=== PATIENT | female | born 1980 | race Two or more races ===

== ENCOUNTER 2018-05-22 17:00 | Emergency (ER) | payer SELFPAY ==
[~2018-05-22] VITALS: Ht 152.4 cm; Wt 81.6 kg
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
[2018-05-22 18:29] LABS: BILIRUBIN,URINE NEGATIVE (NEG); CLARITY,URINE CLEAR; COLOR,URINE YELLOW; NITRITE,URINE NEGATIVE (NEG); PH,URINE 6.5; PROTEIN,URINE NEGATIVE (NEG-TRACE)
[2018-05-22 18:40] LABS: RBC,URINE 0 /HPF (0-2)
[2018-05-22 18:41] LABS: BACTERIA,URINE FEW /HPF (0-FEW); SQUAMOUS EPITHELIAL CELL,UR FEW /LPF
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
[2018-05-22 19:50] LABS: CALCIUM 8.3 mg/dL (8.5-10.1); CREATININE 0.6 mg/dL (0.6-1.0); GFR 113.8; POTASSIUM 3.4 mmol/L (3.5-5.1)
[2018-05-22 19:54] LABS: TOTAL BILIRUBIN 0.6 mg/dL (0.2-1.0); TOTAL PROTEIN 8.4 g/dL (6.4-8.2)
[2018-05-22 20:00] LABS: ALBUMIN 3.5 g/dL (3.4-5.0); ALBUMIN/GLOBULIN RATIO 0.7 (1.0-1.7)
[2018-05-22 20:15] LABS: BASO % 0 % (0-3); EOS # 0.1 x10^3/uL (0.0-0.7); EOS % 2 % (0-3); HEMOGLOBIN 10.4 g/dL (12.0-15.5); LYMPH # 2.1 x10^3/uL (1.0-4.8); LYMPH % 28 % (24-48); MEAN CORPUSCULAR HEMOGLOBIN 23 pg (25-35); MEAN CORPUSCULAR HGB CONC 31 g/dL (31-37); MEAN CORPUSCULAR VOLUME 74 fL (79-100); MONO # 0.8 x10^3/uL (0.0-1.1); MONO % 11 % (0-9); NEUT # 4.4 x10^3uL (1.8-7.7); NEUT % 58 % (31-73); PLATELET COUNT 362 x10^3/uL (140-400); RED BLOOD COUNT 4.62 x10^6/uL (3.50-5.40); RED CELL DISTRIBUTION WIDTH 17.3 % (11.5-14.5); WHITE BLOOD COUNT 7.4 x10^3/uL (4.0-11.0)
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
[2018-05-22 20:46] VITALS: BP 115/61
[2018-05-22] MEDS ORDERED: CEPH500C PO (20:54)
[2018-05-22 21:25] LABS: HYPOCHROMIA MOD; MICROCYTOSIS SLIGHT; PLT ESTIMATE ADEQUATE (ADEQUATE); TARGET CELLS OCC
--- NOTE | 2018-05-23 10:55 | EKG ---
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
== END 2018-05-22 21:15 | disposition home or self-care (01) ==
LOC: ER 17:00
DX: O9A.211 Injury, poisoning and certain other consequences of external causes complicating pregnancy, first trimester (principal); R07.89 Other chest pain; M54.2 Cervicalgia; M25.532 Pain in left wrist; Z3A.01 Less than 8 weeks gestation of pregnancy; V49.9XXA Car occupant (driver) (passenger) injured in unspecified traffic accident, initial encounter; Y93.89 Activity, other specified; Y92.410 Unspecified street and highway as the place of occurrence of the external cause; Y99.8 Other external cause status
CPT/HCPCS: 36415; 70450; 71046; 72125; 73110; 76801; 76817; 80053; 81001; 81025; 84484; 84702; 85025; 86850; 86900; 86901; 87086; 93005; 99284-25

== ENCOUNTER 2018-12-06 18:59 | Observation (INO) | payer SELFPAY ==
[~2018-12-06 18:59] MED LIST: CEPH500C PO
[2018-12-06] MEDS ORDERED: IV RINGERS,LACTATED 1000ML 1,000 ML IV SCH (19:29)
[2018-12-06 20:24] LABS: BILIRUBIN,URINE NEGATIVE (NEG); CLARITY,URINE CLEAR; COLOR,URINE YELLOW; NITRITE,URINE NEGATIVE (NEG); PH,URINE 6.5; PROTEIN,URINE NEGATIVE (NEG-TRACE); UROBILINOGEN,URINE 0.2 mg/dL (0.2 mg/dL)
[2018-12-06 20:29] LABS: BACTERIA,URINE FEW /HPF (0-FEW); RBC,URINE 0 /HPF (0-2)
[2018-12-06 20:30] LABS: BARBITURATES NEG (NEG); BENZODIAZEPINES NEG (NEG); CANNABINOIDS NEG (NEG); COCAINE NEG (NEG); METHADONE NEG (NEG); OPIATES NEG (NEG); PHENCYCLIDINE NEG (NEG); SQUAMOUS EPITHELIAL CELL,UR FEW /LPF
[2018-12-06 20:31] LABS: AMPHETAMINE/METHAMPHETAMINE NEG (NEG)
--- NOTE | 2018-12-06 21:37 | RAD ---
Exam: Ultrasound abdomen limited Indication: Lower abdominal pain and back pain Technique: Real-time grayscale and color Doppler images of the right upper quadrant were obtained by the department dressed poultry grader. Comparisons: None FINDINGS: Liver demonstrates homogenous attenuation. Hepatopedal flow noted within the portal vein. Common bile duct measures 5 mm in diameter. Gallbladder is distended measuring 10.9 cm in length. Gallstones are noted within the gallbladder. No pericholecystic inflammatory changes. No sonographic Merrill's sign by the department dressed poultry grader. Right kidney measures 11.9 cm in length. There is mild to moderate hydronephrosis. IMPRESSION: 1. Mild -sided hydronephrosis. 2. Cholelithiasis with distended gallbladder without other sonographic evidence of acute cholecystitis. 3. Normal sonographic appearance of the liver Electronically signed by: Frieda Vasquez MD (12/06/2018 9:33 PM) [facility]
--- NOTE | 2018-12-06 21:39 | RAD ---
Exam: Ultrasound OB limited Indication: Lower abdominal pain and back pain Technique: Real-time grayscale and color Doppler images of the pelvis were obtained by the department ecotherapist. Comparisons: None FINDINGS: Single live intrauterine gestation in cephalic position with heart rate measured at 131 bpm. measurements as follows: BPD: 8.8 cm corresponding to 35 weeks 6 days HC: 31.6 cm corresponding to 35 weeks 4 days AC: 31.6 cm corresponding to 35 weeks 4 days FL: 7.3 cm corresponding to 37 weeks 4 days Estimated weight 2854 g CARA is normal at 8.6. Cervix is not visualized Placenta has a normal appearance. IMPRESSION: 1. Single live intrauterine gestation with measurements as described above. 2. CARA measured at 8.6 3. Normal appearance of the placenta. Electronically signed by: Frieda Vasquez MD (12/06/2018 9:36 PM) [id number]
== END 2018-12-06 21:53 | disposition home or self-care (01) ==
LOC: 3 SO LND 18:59
PROVIDERS: ADMIT Obstetrics & Gynecology; ATTEND Obstetrics & Gynecology
DX: O62.9 Abnormality of forces of labor, unspecified (principal); Z3A.33 33 weeks gestation of pregnancy
CPT/HCPCS: 76705; 76815; 80307; 81001; G0378; G0379

== ENCOUNTER 2018-12-16 03:23 | Observation (INO) | payer OTHER ==
[2018-12-16] MEDS ORDERED: IV RINGERS,LACTATED 1000ML 1,000 ML IV SCH (03:24)
[2018-12-16] MEDS ORDERED: ONDANSETRON PF 4 MG/2 ML VIAL. IV PRN (03:30)
[2018-12-16] MEDS ORDERED: ACETAMINOPHEN 325 MG TABLET. PO PRN (03:30)
[2018-12-16 03:57] LABS: BILIRUBIN,URINE NEGATIVE (NEG); CLARITY,URINE CLEAR; COLOR,URINE YELLOW; NITRITE,URINE NEGATIVE (NEG); PH,URINE 7.5; PROTEIN,URINE NEGATIVE (NEG-TRACE)
[2018-12-16 04:03] LABS: SQUAMOUS EPITHELIAL CELL,UR MOD /LPF
[2018-12-16 04:04] LABS: BACTERIA,URINE 0 /HPF (0-FEW); RBC,URINE 0 /HPF (0-2)
== END 2018-12-16 08:06 | disposition home or self-care (01) ==
LOC: 3 SO LND 03:23
PROVIDERS: ADMIT Obstetrics & Gynecology; ATTEND Obstetrics & Gynecology
DX: O62.9 Abnormality of forces of labor, unspecified (principal); Z3A.35 35 weeks gestation of pregnancy
CPT/HCPCS: 81001; 87086; 96374; G0378; G0379; J2405; J7120

== ENCOUNTER 2019-01-08 11:57 | Inpatient (IN) | payer OTHER ==
[~2019-01-08] VITALS: Ht 154.9 cm; Wt 84.4 kg
[2019-01-08] MEDS ORDERED: TERBUTALINE 1 MG/ML VIAL. SQ PRN (12:15)
[2019-01-08] MEDS ORDERED: OXYTOCIN 30 UNIT/500 ML PREMIX 500 ML IV PRN ×3 (12:15→20:30)
[2019-01-08] MEDS ORDERED: BUTORPHANOL 2 MG/ML VIAL. IV PRN (12:15)
[2019-01-08] MEDS ORDERED: CITRIC ACID/SODIUM CITRATE 30 ML SOLUTION. PO PRN (12:15)
[2019-01-08] MEDS ORDERED: IBUPROFEN 400 MG TABLET. PO PRN (12:15)
[2019-01-08] MEDS ORDERED: 0.9 % SODIUM CHLORIDE 10 ML DISP.SYRIN. IV PRN ×2 (12:15→20:30)
[2019-01-08] MEDS ORDERED: fentaNYL PF VIAL 100 MCG/2 ML VIAL IV PRN (12:15)
[2019-01-08] MEDS ORDERED: LIDOCAINE 1% PF 30 ML VIAL. INJ PRN (12:15)
[2019-01-08 12:45] VITALS: BP 135/87
[2019-01-08 13:13] LABS: BASO % 1 % (0-3); EOS # 0.1 x10^3/uL (0.0-0.7); EOS % 1 % (0-3); HEMATOCRIT 34.7 % (36.0-47.0); HEMOGLOBIN 11.2 g/dL (12.0-15.5); LYMPH # 1.6 x10^3/uL (1.0-4.8); LYMPH % 16 % (24-48); MEAN CORPUSCULAR HEMOGLOBIN 27 pg (25-35); MEAN CORPUSCULAR HGB CONC 32 g/dL (31-37); MEAN CORPUSCULAR VOLUME 84 fL (79-100); MONO # 0.6 x10^3/uL (0.0-1.1); MONO % 6 % (0-9); NEUT # 7.6 x10^3/uL (1.8-7.7); NEUT % 77 % (31-73); PLATELET COUNT 193 x10^3/uL (140-400); RED BLOOD COUNT 4.15 x10^6/uL (3.50-5.40); WHITE BLOOD COUNT 9.8 x10^3/uL (4.0-11.0)
[2019-01-08] MEDS: IV RINGERS,LACTATED 1000ML 1,000 ML IV SCH ×2 (13:20→17:01)
--- NOTE | 2019-01-08 15:09 | PDOC1 ---
OB - History Hx of Present Care: Limited Care Ultrasounds: Normal mid trimester US Obstetrical Complications: None Medical Complications: None Past Family/Social History * Past Medical, Surgical, Family and Obstetric Histories reviewed from chart. Rubella: Immune RPR/VDRL: Negative GBS Status: Negative HBsAG: Negative OB - Chief Complaint & HPI Date of Admission: Date of Admission: Jan 08, 2019 at 11:57 Chief Complaint/History : 4 Para: 3 EGA: 40 Reason for admission: induction of labor Admission Nurse Assessment Rev: Yes OB - Admission Exam Physical Exam Vitals: VS - Last 72 Hours, by Label Date Time Temp Pulse Resp B/P (MAP) Pulse Ox O2 Delivery O2 Flow Rate FiO2 01/08/19 14:47 20 01/08/19 12:45 98.0 61 18 135/87 (103) 98.0 HEENT: Normal Heart: Regular Rate Lungs: Clear Abdomen: Gravid, Non tender, Soft Extremities: Edema Reflexes: Normal Cervical Dilatation: 4cm Effacement: 75% Station: -3 Membranes: Intact Heart Rate: Normal Accelerations: Accelerations Present Decelerations: No decelerations Contractions on Admission: 6-10 Minutes Apart Intensity: Moderate Text A: 40 wks IUP IOL post term GDM A1 P: Admit for IOL pitocin. EDITH WYMAN Jr, MD Jan 08, 2019 15:09
[2019-01-08] MEDS ORDERED: ROPIVacaine 0.2% PF 10 ML VIAL. ONE ×2 (17:00→17:05)
[2019-01-08] MEDS ORDERED: L&D EPIDURAL 50 ML SYRINGE. ONE (17:00)
[2019-01-08] MEDS ORDERED: IV RINGERS,LACTATED 1000ML 1,000 ML IV ONE (17:02)
[2019-01-08] MEDS ORDERED: L&D EPIDURAL SYRINGE 50 ML EPID PRN (17:15)
[2019-01-08] MEDS ORDERED: NALOXONE 0.4 MG/ML VIAL. IV PRN (17:15)
[2019-01-08] MEDS ORDERED: ONDANSETRON PF 4 MG/2 ML VIAL. IV PRN (17:15)
[2019-01-08] MEDS ORDERED: ePHEDrine PF IN SALINE 50 MG/10 ML SYRINGE. IV PRN (17:15)
[2019-01-08] MEDS ORDERED: SIMETHICONE 80 MG TAB.CHEW PO PRN (20:30)
[2019-01-08] MEDS ORDERED: oxyCODONE/APAP 5/325 1 TAB TABLET PO PRN (20:30)
[2019-01-08] MEDS ORDERED: MAGNESIUM HYDROXIDE 2,400 MG/30 ML ORAL.SUSP. PO PRN (20:30)
[2019-01-08] MEDS ORDERED: MMR per PROTOCOL. MC PRN (20:30)
[2019-01-08] MEDS ORDERED: BENZOCAINE 20% TOPICAL AEROSOL SPRAY 57GM CAN. TP PRN (20:30)
[2019-01-08] MEDS ORDERED: HYDROCORTISONE 1% TOPICAL OINTMENT 30GM TUBE. TP PRN (20:30)
[2019-01-08] MEDS ORDERED: MAG HYDROX/ALUMINUM HYD/SIMETH 30 ML ORAL.SUSP PO PRN (20:30)
[2019-01-08] MEDS ORDERED: ACETAMINOPHEN 325 MG TABLET. PO PRN (20:30)
[2019-01-08] MEDS ORDERED: ZOLPIDEM 5 MG TABLET. PO PRN (20:30)
[2019-01-08] MEDS ORDERED: diphenhydrAMINE HCL 25 MG CAPSULE PO PRN (20:30)
[2019-01-08] MEDS ORDERED: PHENYLEPH/MINERAL OIL/PETROLAT RECTAL OINTMENT TUBE. RC PRN (20:30)
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
[2019-01-08 23:00] VITALS: BP 117/62
[2019-01-09 04:00] VITALS: BP 110/63
[2019-01-09] MEDS: IV RINGERS,LACTATED 1000ML 1,000 ML IV SCH (04:08)
[2019-01-09 05:13] LABS: BASO % 0 % (0-3); EOS % 0 % (0-3); HEMATOCRIT 32.8 % (36.0-47.0); HEMOGLOBIN 10.7 g/dL (12.0-15.5); LYMPH # 1.8 x10^3/uL (1.0-4.8); LYMPH % 9 % (24-48); MEAN CORPUSCULAR HEMOGLOBIN 27 pg (25-35); MEAN CORPUSCULAR HGB CONC 33 g/dL (31-37); MEAN CORPUSCULAR VOLUME 83 fL (79-100); MONO # 1.6 x10^3/uL (0.0-1.1); MONO % 8 % (0-9); NEUT # 15.9 x10^3/uL (1.8-7.7); NEUT % 82 % (31-73); PLATELET COUNT 189 x10^3/uL (140-400); RED BLOOD COUNT 3.96 x10^6/uL (3.50-5.40); RED CELL DISTRIBUTION WIDTH 15.2 % (11.5-14.5); WHITE BLOOD COUNT 19.3 x10^3/uL (4.0-11.0)
[2019-01-09 07:35] LABS: % BANDS 8 % (0-9); % LYMPHS 8 % (24-48); % MONOS 4 % (0-10); % SEGS 80 % (35-66); PLT ESTIMATE ADEQUATE (ADEQUATE)
[2019-01-09] MEDS: FERROUS SULFATE 325 MG TABLET. PO SCH ×2 (08:00→17:00)
[2019-01-09 08:30] VITALS: BP 99/68
[2019-01-09] MEDS: IBUPROFEN 400 MG TABLET. PO PRN (08:30)
[2019-01-09] MEDS: DOCUSATE SODIUM 100 MG CAPSULE. PO PRN (08:32)
--- NOTE | 2019-01-09 09:09 | PDOC ---
OB Progress Note Date of Service 01/09/19 Time of Evaluation 0910 Notes Pt. feeling well. No complaints. Lab Laboratory Tests Test 01/08/19 12:57 01/09/19 04:50 White Blood Count 9.8 x10^3/uL (4.0-11.0) 19.3 x10^3/uL (4.0-11.0) Red Blood Count 4.15 x10^6/uL (3.50-5.40) 3.96 x10^6/uL (3.50-5.40) Hemoglobin 11.2 g/dL (12.0-15.5) 10.7 g/dL (12.0-15.5) Hematocrit 34.7 % (36.0-47.0) 32.8 % (36.0-47.0) Mean Corpuscular Volume 84 fL (79-100) 83 fL (79-100) Mean Corpuscular Hemoglobin 27 pg (25-35) 27 pg (25-35) Mean Corpuscular Hemoglobin Concent 32 g/dL (31-37) 33 g/dL (31-37) Red Cell Distribution Width 15.0 % (11.5-14.5) 15.2 % (11.5-14.5) Platelet Count 193 x10^3/uL (140-400) 189 x10^3/uL (140-400) Neutrophils (%) (Auto) 77 % (31-73) 82 % (31-73) Lymphocytes (%) (Auto) 16 % (24-48) 9 % (24-48) Monocytes (%) (Auto) 6 % (0-9) 8 % (0-9) Eosinophils (%) (Auto) 1 % (0-3) 0 % (0-3) Basophils (%) (Auto) 1 % (0-3) 0 % (0-3) Neutrophils # (Auto) 7.6 x10^3/uL (1.8-7.7) 15.9 x10^3/uL (1.8-7.7) Lymphocytes # (Auto) 1.6 x10^3/uL (1.0-4.8) 1.8 x10^3/uL (1.0-4.8) Monocytes # (Auto) 0.6 x10^3/uL (0.0-1.1) 1.6 x10^3/uL (0.0-1.1) Eosinophils # (Auto) 0.1 x10^3/uL (0.0-0.7) 0.0 x10^3/uL (0.0-0.7) Basophils # (Auto) 0.0 x10^3/uL (0.0-0.2) 0.0 x10^3/uL (0.0-0.2) Treponema pallidum Antibody Nonreactive (Nonreactive) Segmented Neutrophils % 80 % (35-66) Band Neutrophils % 8 % (0-9) Lymphocytes % 8 % (24-48) Monocytes % 4 % (0-10) Platelet Estimate Adequate (ADEQUATE) Laboratory Tests Test 01/08/19 12:57 01/09/19 04:50 White Blood Count 9.8 x10^3/uL (4.0-11.0) 19.3 x10^3/uL (4.0-11.0) Red Blood Count 4.15 x10^6/uL (3.50-5.40) 3.96 x10^6/uL (3.50-5.40) Hemoglobin 11.2 g/dL (12.0-15.5) 10.7 g/dL (12.0-15.5) Hematocrit 34.7 % (36.0-47.0) 32.8 % (36.0-47.0) Mean Corpuscular Volume 84 fL (79-100) 83 fL (79-100) Mean Corpuscular Hemoglobin 27 pg (25-35) 27 pg (25-35) Mean Corpuscular Hemoglobin Concent 32 g/dL (31-37) 33 g/dL (31-37) Red Cell Distribution Width 15.0 % (11.5-14.5) 15.2 % (11.5-14.5) Platelet Count 193 x10^3/uL (140-400) 189 x10^3/uL (140-400) Neutrophils (%) (Auto) 77 % (31-73) 82 % (31-73) Lymphocytes (%) (Auto) 16 % (24-48) 9 % (24-48) Monocytes (%) (Auto) 6 % (0-9) 8 % (0-9) Eosinophils (%) (Auto) 1 % (0-3) 0 % (0-3) Basophils (%) (Auto) 1 % (0-3) 0 % (0-3) Neutrophils # (Auto) 7.6 x10^3/uL (1.8-7.7) 15.9 x10^3/uL (1.8-7.7) Lymphocytes # (Auto) 1.6 x10^3/uL (1.0-4.8) 1.8 x10^3/uL (1.0-4.8) Monocytes # (Auto) 0.6 x10^3/uL (0.0-1.1) 1.6 x10^3/uL (0.0-1.1) Eosinophils # (Auto) 0.1 x10^3/uL (0.0-0.7) 0.0 x10^3/uL (0.0-0.7) Basophils # (Auto) 0.0 x10^3/uL (0.0-0.2) 0.0 x10^3/uL (0.0-0.2) Treponema pallidum Antibody Nonreactive (Nonreactive) Segmented Neutrophils % 80 % (35-66) Band Neutrophils % 8 % (0-9) Lymphocytes % 8 % (24-48) Monocytes % 4 % (0-10) Platelet Estimate Adequate (ADEQUATE) Medications Current Medications Sodium Chloride (Normal Saline Flush) 3 ml QSHIFT PRN IV AFTER MEDS AND BLOOD DRAWS; Start 01/08/19 at 12:15 Ringer's Solution 1,000 ml @ 125 mls/hr Q8H IV Last administered on 01/08/19at 17:01; Start 01/08/19 at 12:08 Butorphanol Tartrate (Stadol) 2 mg PRN Q1HR PRN IV Severe labor pain Last administered on 01/08/19at 14:47; Start 01/08/19 at 12:15 Fentanyl Citrate (Fentanyl 2ml Vial) 100 mcg PRN Q30MIN PRN IV Severe pain; Start 01/08/19 at 12:15 Citric Acid/ Sodium Citrate (Bicitra) 30 ml 1X PRN PRN PO DYSPEPSIA; Start at 12:15; Stop 01/09/19 at 12:14 Terbutaline Sulfate (Brethine) 0.25 mg 1X PRN PRN SQ SEE COMMENTS; Start 01/08/19 at 12:15; Stop 01/09/19 at 12:14 Lidocaine HCl (Xylocaine 1% Pf 30ml Vial) 30 ml 1X PRN PRN INJ SEE COMMENTS; Start 01/08/19 at 12:15; Stop 01/10/19 at 12:14 Oxytocin/Sodium Chloride 500 ml @ 0 mls/hr CONT PRN IV SEE I/O RECORD Last administered on 01/08/19at 14:46; Start 01/08/19 at 12:15 Oxytocin/Sodium Chloride 500 ml @ 0 mls/hr CONT PRN PRN IV Post delivery bleeding; Start 01/08/19 at 12:15 Ibuprofen (Motrin) 800 mg PRN Q6HRS PRN PO PAIN Last administered on 01/09/19at 08:33; Start 01/08/19 at 12:15 Ringer's Solution 1,000 ml @ 0 mls/hr Q0M ONCE IV ; Start 01/08/19 at 17:02; Stop 01/08/19 at 17:06; Status DC Ephedrine Sulfate (ePHEDrine PF IN SALINE SYRINGE) 10 mg PRN Q2MIN PRN IV IF SBP<90; Start 01/08/19 at 17:15 Naloxone HCl (Narcan) 0.04 mg PRN Q1MIN PRN IV SEE COMMENTS; Start 01/08/19 at 17:15 Fentanyl Citrate 50 ml @ 14 mls/hr CONT PRN EPID PAIN; Start 01/08/19 at 17:15 Ondansetron HCl (Zofran) 4 mg PRN Q6HRS PRN IV NAUSEA/VOMITING; Start 01/08/19 at 17:15 Ropivacaine (Naropin 0.2%) 10 ml STK-MED ONCE .ROUTE ; Start 01/08/19 at 17:05; Stop 01/08/19 at 17:05; Status DC Sodium Chloride (Normal Saline Flush) 10 ml QSHIFT PRN IV AFTER MEDS AND BLOOD DRAWS; Start 01/08/19 at 20:30 Oxytocin/Sodium Chloride 500 ml @ 62.5 mls/hr CONT PRN IV SEE I/O RECORD; Start 01/08/19 at 20:30; Stop 01/09/19 at 04:29; Status DC Acetaminophen (Tylenol) 650 mg PRN Q6HRS PRN PO MILD PAIN / TEMP; Start 01/08/19 at 20:30 Ibuprofen (Motrin) 800 mg PRN Q8HRS PRN PO INFLAMMATION/PAIN PREVENTION; Start 01/08/19 at 20:30 Docusate Sodium (Colace) 100 mg PRN BID PRN PO CONSTIPATION Last administered on 01/09/19at 08:32; Start 01/08/19 at 20:30 Magnesium Hydroxide (Milk Of Magnesia) 2,400 mg PRN DAILY PRN PO CONSTIPATION; Start 01/08/19 at 20:30 Al Hydroxide/Mg Hydroxide (Mylanta Plus Xs) 30 ml PRN Q4HRS PRN PO HEARTBURN / GAS; Start 01/08/19 at 20:30 Simethicone (Gas-X) 80 mg PRN AFTMEALHC PRN PO GAS / BLOATING; Start 01/08/19 at 20:30 Diphenhydramine HCl (Benadryl) 25 mg PRN Q6HRS PRN PO ITCHING; Start 01/08/19 at 20:30 Benzocaine (Americaine) 1 spray PRN QID PRN TP TOPICAL PAIN; Start 01/08/19 at 20:30 Phenyleph/Shark Oil/Min Oil/Petrol (Preparation H) 1 laine PRN QID PRN RC RECTAL PAIN; Start 01/08/19 at 20:30 Hydrocortisone (Cortaid) 1 laine PRN QID PRN TP PERINEAL PAIN; Start 01/08/19 at 20:30 Ferrous Sulfate (Feosol) 325 mg BIDWMEALS PO ; Start 01/09/19 at 08:00 Zolpidem Tartrate (Ambien) 5 mg PRN QHS PRN PO INSOMNIA, MAY REPEAT X1; Start 01/08/19 at 20:30 Info (Do NOT chart on this placeholder) 1 ea 1X PRN PRN MC SEE COMMENTS; Start 01/08/19 at 20:30 Info (Do NOT chart on this placeholder) 1 ea 1X PRN PRN MC SEE COMMENTS; Start 01/08/19 at 20:30 Oxycodone/ Acetaminophen (Percocet 5/325) 2 tab PRN Q4HRS PRN PO MODERATE PAIN, SEVERE PAIN; Start 01/08/19 at 20:30 Active Scripts Active Cephalexin 500 Mg Capsule 1 Cap PO QID Exam Abd: soft, non tender, fundus firm Assessment PPD#1 s/p Plan of Care: Continue current Tx, Mgmt EDITH WYMAN Jr, MD Jan 09, 2019 09:09
[2019-01-09 18:00] VITALS: BP 106/59
[2019-01-09 22:44] VITALS: BP 121/69
[2019-01-10 06:10] VITALS: BP 115/65
[2019-01-10] MEDS: FERROUS SULFATE 325 MG TABLET. PO SCH (08:00)
--- NOTE | 2019-01-10 08:53 | PDOC3 ---
OB DISCHARGE SUMMARY DATE OF ADMISSION: 01/08/19 DATE OF DISCHARGE: 01/10/19 REASON FOR ADMISSION: Induction of labor INTRAPARTUM PROCEDURES: Spontanous Vag Deliv DISCHARGE DIAGNOSIS: Term Delivered DISCHARGE INFORMATION: Activity (ad mark), Diet (regular), Instructions (pelvic rest x 6 wks) HOSPITAL COURSE Term gestation delivered vaginally without complications. EDITH WYMAN Jr, MD Jan 10, 2019 08:53
[2019-01-10] MEDS ORDERED: IBUP-1027 PO (08:54)
--- NOTE | 2019-01-10 08:55 | DISCH ---
DISCHARGE INSTRUCTIONS Condition on Discharge Condition on Discharge: Stable Activity After Discharge Activity Instructions for Disc: Activity as tolerated Lifting Instructions after Dis: No heavy lifting Driving Instructions after Dis: Do not drive today Diet after Discharge Diet after Discharge: Regular Contacting the DRJoseph after DC Call your doctor for: Concerns you may have Follow-Up Follow up with: Ankit in 6 wks EDITH WYMAN Jr, MD Jan 10, 2019 08:55
[2019-01-10] MEDS: DOCUSATE SODIUM 100 MG CAPSULE. PO PRN (09:10)
[2019-01-10] MEDS: IBUPROFEN 400 MG TABLET. PO PRN (09:10)
[2019-01-10 13:00] VITALS: BP 120/80
== END 2019-01-10 14:35 | disposition home or self-care (01) | DRG 807 ==
LOC: 3 SO LND 11:57 → 3 NORTH 22:50
PROVIDERS: ADMIT Obstetrics & Gynecology; ATTEND Obstetrics & Gynecology
PROC: 10E0XZZ Delivery of Products of Conception, External Approach (ICD-10-PCS; principal; 2019-01-08)
PROC: 0HQ9XZZ Repair Perineum Skin, External Approach (ICD-10-PCS; 2019-01-08)
PROC: 00HU03Z Insertion of Infusion Device into Spinal Canal, Open Approach (ICD-10-PCS; 2019-01-08)
PROC: 3E0R3BZ Introduction of Anesthetic Agent into Spinal Canal, Percutaneous Approach (ICD-10-PCS; 2019-01-08)
DX: O48.0 Post-term pregnancy (principal); Z37.0 Single live birth; Z3A.40 40 weeks gestation of pregnancy; O70.0 First degree perineal laceration during delivery; O24.419 Gestational diabetes mellitus in pregnancy, unspecified control
CPT/HCPCS: 36415; 85007; 85025; 86592; 86850; 86900; 86901; J2590; J2795; J7120; G0378

== ENCOUNTER 2020-01-20 18:42 | Inpatient (IN) | payer OTHER ==
[~2020-01-20] VITALS: Ht 152.4 cm; Wt 93.9 kg
[~2020-01-20 18:42] MED LIST changes: +IBUP-1027 PO
[2020-01-20] MEDS ORDERED: OXYTOCIN 30 UNIT/500 ML PREMIX 500 ML IV ONE (20:00)
[2020-01-20] MEDS ORDERED: PENICILLIN G K 5,000,000 UNIT in IV DEXTROSE 5% 100ML 100 ML IV ONE (20:00)
[2020-01-20] MEDS ORDERED: OXYTOCIN 30 UNIT/500 ML PREMIX 500 ML IV PRN ×3 (20:00→23:45)
[2020-01-20 20:02] LABS: AMNIO PT NEGATIVE
[2020-01-20 20:58] VITALS: BP 125/75
[2020-01-20 21:33] LABS: AMPHETAMINE/METHAMPHETAMINE NEG (NEG); BARBITURATES NEG (NEG); BENZODIAZEPINES NEG (NEG); CANNABINOIDS NEG (NEG); COCAINE NEG (NEG); METHADONE NEG (NEG); OPIATES NEG (NEG); PHENCYCLIDINE NEG (NEG)
--- NOTE | 2020-01-20 21:48 | PDOC1 ---
[facility]P Date of Admission: Date of Admission: Jan 20, 2020 at 18:42 History of Present Illness: EDC: 02/05/20 LMP: 05/21/19 39y @ 37.5 by 28wk u/s who presented to office with LOF. The pt states that she began leaking on Friday. She did not come in for eval b/c she was not ctxing. SSE was performed in the office returning +/+/+. She was sent to L&D for confirmation. Her aminosure returned neg, but based on the previous exam and being GBS pos she was admitted for augmentation. The pt was A2DM. Her FSBS have been mostly nml with a few elevations (mostly fastings). The pt did not immediately presetn after she was sent from clinic. She arrived almost 4 hours later. In the last 30 minutes the pt reports f/c. PMH: Denies PSH: Denies Meds: PNV, Metformin All: NKDA OBHx: 4 x TSVD SH: no tob, no EtOH FH: noncontributory Medications: Meds: Current Medications Medications (Trade) Dose Ordered Sig/Dario Route PRN Reason Start Time Stop Time Status Last Admin Dose Admin Oxytocin 500 ml @ 0 mls/hr 1X ONCE IV 01/20/20 20:00 01/20/20 20:03 DC 01/20/20 20:20 Allergies: Coded Allergies: No Known Drug Allergies (Unverified , 05/22/18) Physical Exam: Vital Signs: Vital Signs Date Time Temp Pulse Resp B/P (MAP) Pulse Ox O2 Delivery O2 Flow Rate FiO2 01/20/20 20:58 98.4 108 18 125/75 (92) Room Air 98.4 PE: GENERAL: No apparent distress. Alert and oriented. HEENT: Head normocephalic, atraumatic. NECK: Supple LUNGS: Clear to auscultation. HEART: RRR, S1, S2 present, pulses intact ABDOMEN: Soft, positive bowel sounds. EXTREMITIES: No cyanosis or edema. NEUROLOGIC: Normal speech, normal tone PSYCHIATRIC: Normal affect, normal mood. SKIN: No ulceration. Tm 99.5 FHT: 150's +acels/no decels/mLTV [place]: 2-3 min SVE: 3/50/-2 Labs: Laboratory Tests Test 01/20/20 19:16 01/20/20 19:24 01/20/20 20:00 01/20/20 20:14 Glucose (Fingerstick) 117 mg/dL (70-99) H Amniotic Fluid Swab Test Negative Urine Opiates Screen Neg (NEG) Urine Methadone Screen Neg (NEG) Urine Barbiturates Neg (NEG) Urine Phencyclidine Screen Neg (NEG) Urine Amphetamine/Methamphetamine Neg (NEG) Urine Benzodiazepines Screen Neg (NEG) Urine Cocaine Screen Neg (NEG) Urine Cannabinoids Screen Neg (NEG) Urine Ethyl Alcohol Neg (NEG) SARS-CoV-2 Antigen (Rapid) Negative (NEGATIVE) Assessment & Plan: A/P 39y @ 37.5 by 28wk u/s 1.) SROM will start on Pit for augmentation 2.) AMA NIPT low risk 3.) A2DM adequate control, on Metformin 500/1000 4.) Anemia on Fe 5.) RPR reactive Treponema pallidum NR 6.) TDAP given 12/09/19 7.) Fetus cat I FHT 8.) GBS pos on PCN ISAIAH BOB MD Jan 20, 2020 21:48
[2020-01-20] MEDS: IV RINGERS,LACTATED 1000ML 1,000 ML IV SCH (21:53)
[2020-01-20] MEDS ORDERED: GENTAMICIN SULFATE 230 MG in IV NORMAL SALINE 100ML 100 ML IV SCH (22:00)
[2020-01-20] MEDS ORDERED: TERBUTALINE 1 MG/ML VIAL. SQ PRN (23:45)
[2020-01-20] MEDS ORDERED: LIDOCAINE 1% PF 30 ML VIAL. INJ PRN (23:45)
[2020-01-20] MEDS ORDERED: 0.9 % SODIUM CHLORIDE 10 ML DISP.SYRIN. IV PRN (23:45)
[2020-01-20 23:54] LABS: BASO # 0.1 x10^3/uL (0.0-0.2); BASO % 0 % (0-3); EOS % 0 % (0-3); HEMATOCRIT 37.9 % (36.0-47.0); HEMOGLOBIN 12.2 g/dL (12.0-15.5); LYMPH # 1.5 x10^3/uL (1.0-4.8); LYMPH % 7 % (24-48); MEAN CORPUSCULAR HEMOGLOBIN 28 pg (25-35); MEAN CORPUSCULAR HGB CONC 32 g/dL (31-37); MEAN CORPUSCULAR VOLUME 88 fL (79-100); MONO # 1.4 x10^3/uL (0.0-1.1); MONO % 7 % (0-9); NEUT # 18.2 x10^3/uL (1.8-7.7); NEUT % 86 % (31-73); PLATELET COUNT 266 x10^3/uL (140-400); RED BLOOD COUNT 4.31 x10^6/uL (3.50-5.40); RED CELL DISTRIBUTION WIDTH 24.1 % (11.5-14.5); WHITE BLOOD COUNT 21.3 x10^3/uL (4.0-11.0)
[2020-01-21] MEDS ORDERED: PENICILLIN G K 2,500,000 UNIT in IV DEXTROSE 5% 50 ML IV SCH
[2020-01-21 00:34] LABS: % BANDS 8 % (0-9); % LYMPHS 8 % (24-48); % MONOS 5 % (0-10); % SEGS 79 % (35-66); ANISOCYTOSIS SLIGHT; PLT ESTIMATE ADEQUATE (ADEQUATE); TOXIC VACUOLATION SLIGHT
[2020-01-21] MEDS ORDERED: ROPIVacaine 0.2% PF 10 ML VIAL. ONE ×2 (01:26→02:00)
[2020-01-21] MEDS ORDERED: L&D EPIDURAL SYRINGE 50 ML ONE (01:27)
[2020-01-21] MEDS: IV RINGERS,LACTATED 1000ML 1,000 ML IV SCH ×5 (01:37→17:00)
[2020-01-21] MEDS ORDERED: NALOXONE 0.4 MG/ML VIAL. IV PRN (02:00)
[2020-01-21] MEDS ORDERED: ROPIVacaine 0.2% PF 10 ML VIAL. EPID PRN (02:00)
[2020-01-21] MEDS ORDERED: L&D EPIDURAL SYRINGE 50 ML EPID PRN (02:00)
[2020-01-21] MEDS ORDERED: IV RINGERS,LACTATED 1000ML 1,000 ML IV SCH (02:00)
[2020-01-21] MEDS ORDERED: L&D EPIDURAL 50 ML SYRINGE. ONE ×2 (02:00)
[2020-01-21 02:34] LABS: BILIRUBIN,URINE NEGATIVE (NEG); CLARITY,URINE CLEAR; COLOR,URINE YELLOW; NITRITE,URINE NEGATIVE (NEG); PROTEIN,URINE NEGATIVE (NEG-TRACE)
[2020-01-21 02:46] LABS: BACTERIA,URINE 0 /HPF (0-FEW); WBC,URINE 20-40 /HPF (0-4)
[2020-01-21] MEDS: AMPICILLIN SODIUM 2 GM in IV NORMAL SALINE 100ML 100 ML IV SCH ×4 (04:00→18:00)
[2020-01-21] MEDS ORDERED: LIDOCAINE 2% PF 5 ML VIAL. ONE (05:11)
--- NOTE | 2020-01-21 06:07 | PDOC ---
VAGINAL DELIVERY DATE DATE: 01/21/20 TIME: 06:05 TIME Around 2200 the pt spiked a fever. Her abx were changed to Amp/Gent. The patient delivered a viable female over intact perineum at 0552. Wt 6lb 3.1oz. Apgars 8/9. Placenta delivered spontaneously, intact with 3VC. No lacerations noted. Good hemostasis noted. 20 U of Pit given with IVF. EBL 200cc WEIGHT Weight [ ] ISAIAH BOB MD Jan 21, 2020 06:07
[2020-01-21] MEDS ORDERED: BENZOCAINE 20% TOPICAL AEROSOL SPRAY 57GM CAN. TP PRN (06:15)
[2020-01-21] MEDS ORDERED: 0.9 % SODIUM CHLORIDE 10 ML DISP.SYRIN. IV PRN (06:15)
[2020-01-21] MEDS ORDERED: HYDROCORTISONE 1% TOPICAL OINTMENT 30GM TUBE. TP PRN (06:15)
[2020-01-21] MEDS ORDERED: MAGNESIUM HYDROXIDE 2,400 MG/30 ML ORAL.SUSP. PO PRN (06:15)
[2020-01-21] MEDS ORDERED: PHENYLEPH/MINERAL OIL/PETROLAT RECTAL OINTMENT TUBE. RC PRN (06:15)
[2020-01-21] MEDS ORDERED: ZOLPIDEM 5 MG TABLET. PO PRN (06:15)
[2020-01-21] MEDS ORDERED: diphenhydrAMINE HCL 25 MG CAPSULE PO PRN (06:15)
[2020-01-21] MEDS ORDERED: OXYTOCIN 30 UNIT/500 ML PREMIX 500 ML IV PRN (06:15)
[2020-01-21] MEDS ORDERED: SIMETHICONE 80 MG TAB.CHEW PO PRN (06:15)
[2020-01-21] MEDS ORDERED: TDaP (Adacel) per PROTOCOL. MC PRN (06:15)
[2020-01-21] MEDS ORDERED: MMR per PROTOCOL. MC PRN (06:15)
[2020-01-21] MEDS ORDERED: MAG HYDROX/ALUMINUM HYD/SIMETH 30 ML ORAL.SUSP PO PRN (06:15)
[2020-01-21] MEDS ORDERED: ACETAMINOPHEN 325 MG TABLET. PO PRN (06:15)
[2020-01-21] MEDS ORDERED: oxyCODONE/APAP 5/325 1 TAB TABLET PO PRN (06:15)
[2020-01-21] MEDS: IBUPROFEN 400 MG TABLET. PO PRN ×2 (07:52→17:47)
[2020-01-21] MEDS: PRENATAL MULTIVITAMIN TABLET. PO SCH (09:00)
[2020-01-21 09:10] VITALS: BP 99/61
[2020-01-21 14:10] VITALS: BP 102/62
[2020-01-21] MEDS: DOCUSATE SODIUM 100 MG CAPSULE. PO PRN (17:46)
[2020-01-21 18:09] VITALS: BP 105/68
[2020-01-21 22:18] VITALS: BP 113/67
[2020-01-22 02:05] VITALS: BP 103/61
[2020-01-22] MEDS: FERROUS SULFATE 325 MG TABLET. PO SCH ×2 (08:00→17:00)
[2020-01-22] MEDS: DOCUSATE SODIUM 100 MG CAPSULE. PO PRN (08:17)
[2020-01-22] MEDS: PRENATAL MULTIVITAMIN TABLET. PO SCH (08:17)
[2020-01-22] MEDS: IBUPROFEN 400 MG TABLET. PO PRN ×2 (08:18→22:15)
[2020-01-22 08:45] VITALS: BP 111/63
[2020-01-22 10:28] LABS: HEMOGLOBIN 11.2 g/dL (12.0-15.5); RED BLOOD COUNT 3.85 x10^6/uL (3.50-5.40); RED CELL DISTRIBUTION WIDTH 23.3 % (11.5-14.5)
--- NOTE | 2020-01-22 11:47 | PDOC ---
SPRAY PAINTER HELPER PROGRESS NOTE Date of Service: DATE: 01/22/20 TIME: 11:47 Subjective: Pt with good pain control. Merry PO. Voiding. Minimal lochia. Pt denies f/c Objective: Vital Signs: Vital Signs Date Time Temp Pulse Resp B/P (MAP) Pulse Ox O2 Delivery O2 Flow Rate FiO2 01/21/20 09:10 98.3 79 18 99/61 (74) 98 Room Air 98.3 Vital Signs Date Time Temp Pulse Resp B/P (MAP) Pulse Ox O2 Delivery O2 Flow Rate FiO2 01/22/20 08:45 97.7 79 20 111/63 (79) 98 Room Air 97.7 Labs: Laboratory Tests Test 01/22/20 10:00 White Blood Count 13.0 x10^3/uL (4.0-11.0) H Red Blood Count 3.85 x10^6/uL (3.50-5.40) Hemoglobin 11.2 g/dL (12.0-15.5) L Hematocrit 34.0 % (36.0-47.0) L Mean Corpuscular Volume 88 fL (79-100) Mean Corpuscular Hemoglobin 29 pg (25-35) Mean Corpuscular Hemoglobin Concent 33 g/dL (31-37) Red Cell Distribution Width 23.3 % (11.5-14.5) H Platelet Count 232 x10^3/uL (140-400) Laboratory Tests 01/22/20 10:00 Laboratory Tests 01/22/20 10:00 Physical Exam: GENERAL: No apparent distress. Alert and oriented. HEENT: Head normocephalic, atraumatic. NECK: Supple LUNGS: Clear to auscultation. HEART: RRR, S1, S2 present, pulses intact ABDOMEN: Soft, positive bowel sounds. EXTREMITIES: No cyanosis or edema. NEUROLOGIC: Normal speech, normal tone PSYCHIATRIC: Normal affect, normal mood. SKIN: No ulceration. FFNT below umb No C/C/E Assessment & Plan: A/P 39y PPD #1 s/p 1.) PP doing well 2.) IAI abx d/nikkie s/p delivery, AF since, WBC 21.3 -> 13.0 3.) A2DM Metformin d/nikkie, fasting FSBS nml 4.) Anemia Hgb 12.2 -> 13.0 5.) RPR reactive Treponema pallidum NR 6.) TDAP given 12/09/19 7.) Cont PP care ISAIAH BOB MD Jan 22, 2020 11:47
[2020-01-22 18:14] VITALS: BP 109/61
[2020-01-22 23:12] VITALS: BP 110/74
[2020-01-23 06:10] VITALS: BP 109/73
[2020-01-23] MEDS: IBUPROFEN 400 MG TABLET. PO PRN (06:34)
[2020-01-23] MEDS: FERROUS SULFATE 325 MG TABLET. PO SCH (08:00)
[2020-01-23] MEDS: DOCUSATE SODIUM 100 MG CAPSULE. PO PRN (09:01)
[2020-01-23] MEDS: PRENATAL MULTIVITAMIN TABLET. PO SCH (09:01)
--- NOTE | 2020-01-23 10:29 | PDOC ---
RADIOLOGY SERVICES MANAGER PROGRESS NOTE Date of Service: DATE: 01/23/20 TIME: 10:28 Subjective: Pt with good pain control. Merry PO. Voiding. Minimal lochia. Denies f/c. Objective: Vital Signs: Vital Signs Date Time Temp Pulse Resp B/P (MAP) Pulse Ox O2 Delivery O2 Flow Rate FiO2 01/22/20 08:45 97.7 79 20 111/63 (79) 98 Room Air 97.7 Vital Signs Date Time Temp Pulse Resp B/P (MAP) Pulse Ox O2 Delivery O2 Flow Rate FiO2 01/23/20 06:10 97.9 65 18 109/73 (85) 99 Room Air 97.9 Physical Exam: GENERAL: No apparent distress. Alert and oriented. HEENT: Head normocephalic, atraumatic. NECK: Supple LUNGS: Clear to auscultation. HEART: RRR, S1, S2 present, pulses intact ABDOMEN: Soft, positive bowel sounds. EXTREMITIES: No cyanosis or edema. NEUROLOGIC: Normal speech, normal tone PSYCHIATRIC: Normal affect, normal mood. SKIN: No ulceration. FFNT below umb no C/C/E Assessment & Plan: A/P 39y PPD #2 s/p 1.) PP doing well 2.) IAI abx d/nikkie s/p delivery, AF since, WBC 21.3 -> 13.0 3.) A2DM Metformin d/nikkie, fasting FSBS nml 4.) Anemia Hgb 12.2 -> 11.2 5.) RPR reactive Treponema pallidum NR 6.) TDAP given 12/09/19 7.) D/c home ISAIAH BOB MD Jan 23, 2020 10:29
[2020-01-23 11:00] VITALS: BP 109/62
[2020-01-23] MEDS ORDERED: DOCU-109 PO (11:19)
[2020-01-23] MEDS ORDERED: IBUP-1060 PO (11:19)
--- NOTE | 2020-01-23 11:28 | DS ---
DATE OF DISCHARGE: ADMISSION DIAGNOSES: 1. Intrauterine at 37 weeks and 5 days by 28-week ultrasound. 2. Spontaneous rupture of membranes. 3. Advanced maternal age. 4. A2 diabetes. 5. Anemia. 6. RPR reactive, but Treponema pallidum nonreactive. 7. GBS positive. DISCHARGE DIAGNOSES: 1. Intrauterine at 37 weeks and 5 days by 28-week ultrasound. 2. Spontaneous rupture of membranes. 3. Advanced maternal age. 4. A2 diabetes. 5. Anemia. 6. RPR reactive, but Treponema pallidum nonreactive. 7. GBS positive. 8. Intraamniotic infection. PROCEDURE: Spontaneous vaginal delivery. BRIEF HOSPITAL COURSE: The patient is a 39-year-old 5, para 4-0-0-4, who presented to the office at 37 weeks and 5 days by 28-week ultrasound with leakage of fluid. The patient said that she thought the bleeding began Friday. She did not come in for evaluation because she was not ninfa. A sterile speculum exam was performed in the office returning positive Nitrazine, positive ferning and positive pooling. She was sent to the Labor and Delivery for confirmation test. An AmniSure was performed, but returned negative, but based on a previous exam, the high level of suspicion that the patient was ruptured. The patient was started on Pitocin for induction. Of note, the patient had A2 diabetes, on metformin 500 mg in the morning and 1000 mg in the evening. Her fingersticks have grossly been normal with a few elevations, mostly fasting throughout her course of the metformin. The patient was sent to Labor and Delivery around 3-4 o'clock that did not present until like 7 o'clock. After a few hours of admission and induction, the patient reported having some fevers and chills. Shortly thereafter, the patient did spike a fever. The patient was subsequently switched from penicillin to ampicillin and gentamicin for her intraamniotic infection. The patient ultimately delivered by vaginal delivery, see delivery note for full detail. After delivery, the antibiotics were stopped. By day #2, the patient was meeting all discharge criteria and was subsequently discharged home. Of note, her hemoglobin on admission was 12.2 and after delivery was 11.2. DISCHARGE INSTRUCTIONS: The patient was told not to lift anything greater than 20 pounds, have pelvic rest for 6 weeks. The patient was to call if she had fevers, chills, nausea, vomiting, abdominal pain or any additional questions or concerns. FOLLOWUP APPOINTMENT: The patient is to follow up [place] [facility] [place]. DISCHARGE MEDICATIONS: The patient was given a prescription for Motrin 800 mg 30 pills and Colace 100 mg 30 pills. ISAIAH BOB MD DR: MISAEL/nts JOB#: [id number] / [id number]
--- NOTE | 2020-01-23 11:33 | NUR ---
Call placed to Dr. Tomlinson regarding PP depression score of 13 and the SS consult that was triggered. Informed Dr. Tomlinson that SS wouldn't see pt today but that the PAT could come see if he wanted them too. said pt can follow up in the office if depression persists or worsens but she can go home today without being seen.
[2020-01-23 13:10] VITALS: BP 114/79
--- NOTE | 2020-01-23 13:30 | NUR ---
Discharge and follow up instructions reviewed and given to pt along with 2 Rx's. Pt and S/O verbalized understanding and denied any questions at this time. Staff ambulated pt out of the hospital with her S/O and her by her side.
[2020-01-25] MEDS ORDERED: FAMO-63 PO (15:59)
[2020-01-25] MEDS ORDERED: ACET325T21 PO (15:59)
== END 2020-01-23 13:30 | disposition home or self-care (01) | DRG 805 ==
LOC: OBSVTOIN 18:42 → 3 SO LND 18:42 → 3 NORTH 01-21 10:42
PROVIDERS: ADMIT Obstetrics & Gynecology; ATTEND Obstetrics & Gynecology
PROC: 10E0XZZ Delivery of Products of Conception, External Approach (ICD-10-PCS; principal; 2020-01-20)
PROC: 3E033VJ Introduction of Other Hormone into Peripheral Vein, Percutaneous Approach (ICD-10-PCS; 2020-01-20)
DX: O99.824 Streptococcus B carrier state complicating childbirth (principal); O41.1230 Chorioamnionitis, third trimester, not applicable or unspecified; Z37.0 Single live birth; O99.02 Anemia complicating childbirth; O24.425 Gestational diabetes mellitus in childbirth, controlled by oral hypoglycemic drugs; D64.9 Anemia, unspecified; Z3A.37 37 weeks gestation of pregnancy; Z20.828 Contact with and (suspected) exposure to other viral communicable diseases
CPT/HCPCS: 36415; 80307; 81001; 82962; 84112; 85007; 85025; 85027; 86592; 86850; 86900; 86901; 87086; 87426; J0290; J1580; J2590; J2795; J3010; J7120; U0003; G0378